=== PATIENT | male | born 1990 | race African-American/Black ===

== ENCOUNTER 2023-11-29 19:13 | Emergency (ER) | payer MEDICAID ==
[~2023-11-29] VITALS: Ht 165.1 cm; Wt 79.0 kg
[2023-11-29 19:28] VITALS: O2SAT 96
[2023-11-29 19:58] LABS: CLARITY URINE CLEAR (CLEAR); COLOR URINE YELLOW (YELLOW); GLUCOSE URINE NEGATIVE (NEGATIVE); KETONES URINE TRACE (NEGATIVE); LEUKOCYTE ESTERASE URINE NEGATIVE (NEGATIVE); NITRITE URINE NEGATIVE (NEGATIVE); OCCULT BLOOD URINE NEGATIVE (NEGATIVE); PH URINE 5.5 (4.5-8.0); PROTEIN URINE TRACE (NEGATIVE); SPECIFIC GRAVITY URINE 1.021 (1.005-1.030)
[2023-11-29 20:16] LABS: BASOPHILS % 0.5 % (0.0-2.0); EOSINOPHILS % 1.2 % (0.0-5.0); HEMATOCRIT. 49.5 % (42.0-52.0); HEMOGLOBIN. 16.5 g/dL (14.0-18.0); LYMPHOCYTES % 15.8 % (20.0-50.0); MEAN CORPUSCULAR HEMOGLOBIN 29.3 pg (28.0-32.0); MEAN CORPUSCULAR HGB CONC 33.3 g/dL (31.0-37.0); MEAN PLATELET VOLUME 9.9 fl (7.4-10.4); NEUTROPHILS % 76.5 % (40.0-76.0); PLATELET 281 x1000/uL (130-400); RED BLOOD CELL COUNT 5.63 mill/uL (4.7-6.1); RED CELL DISTRIBUTION WIDTH 12.2 % (11.6-14.6)
[2023-11-29 20:21] LABS: CHLORIDE 103 mEq/L (98-107)
[2023-11-29 20:22] LABS: CARBON DIOXIDE 26 mEq/L (21-32); POTASSIUM 3.6 mEq/L (3.5-5.1); SODIUM 136 mEq/L (136-145)
[2023-11-29 20:23] LABS: CALCIUM 9.7 mg/dL (8.7-10.4)
[2023-11-29 20:27] LABS: CREATININE 1.5 mg/dL (0.6-1.3)
[2023-11-29 20:28] LABS: GLUCOSE 105 mg/dL (70-105); UREA NITROGEN BLOOD 7 mg/dL (9-23)
[2023-11-29 20:29] LABS: ALANINE AMINOTRANSFERASE 19 IU/L (10-49); ASPARTATE AMINOTRANSFERASE 24 IU/L (<34)
[2023-11-29 20:30] LABS: BILIRUBIN DIRECT 0.3 mg/dL (<=3.0); BILIRUBIN TOTAL 0.8 mg/dL (0.1-1.0); PROTEIN TOTAL 8.4 g/dL (6.0-8.3)
[2023-11-29 20:34] LABS: BACTERIA URINE NONE SEEN; RBC URINE NONE SEEN /hpf (0-2); SQUAMOUS EPITHELIAL CELL URINE RARE /lpf (RARE/1+); WBC URINE NONE SEEN /hpf (0-2)
[2023-11-29] MEDS: MAGNESIUM/ALUMINUM HYDROXIDE/SIMETHICONE 30ML UDC PO STA (21:55)
[2023-11-29] MEDS ORDERED: DICYCLOMINE 10 MG/5 ML ORAL SYR PO STA (21:55)
[2023-11-29] MEDS: DICYCLOMINE HCL 10MG CAPSULE PO NR (22:30)
[2023-11-30] MEDS ORDERED: ONDA4TAB50 MT (00:11)
[2023-11-30] MEDS ORDERED: OMEP40CA20 MT (00:11)
[2023-11-30 00:33] VITALS: BP 145/67; PULSE 88; RESP 18; TEMP 36.66960; O2SAT 96
== END 2023-11-30 00:35 | disposition home or self-care (01) ==
LOC: ER 19:13
DX: R10.33 Periumbilical pain (principal); J45.909 Unspecified asthma, uncomplicated; F12.10 Cannabis abuse, uncomplicated; Z88.0 Allergy status to penicillin; Z79.899 Other long term (current) drug therapy
CPT/HCPCS: 36415; 74176; 80048; 80076; 81003; 85025; 99284